=== PATIENT | male | born 1985 | race African-American/Black ===

== ENCOUNTER 2018-04-27 13:20 | Emergency (ER) | payer SELFPAY ==
--- NOTE | 2018-04-27 13:29 | PDOC ---
History of Present Illness <Samantha Perrin - Last Filed: 04/27/18 18:41> - General History Source: Patient Exam Limitations: No Limitations - History of Present Illness Initial Comments: 04/27/18 13:53 32-year-old male with no past medical history BIBA to emergency department c/o right low back pain for two hours. He states that the pain is sharp, aggravated by movement and sitting up straight, alleviated by laying down flat, non- radiating, constant, currently 04/23. He denies dysuria, abdominal pain, nausea , vomiting, diarrhea, headache, body aches, weakness, numbness, tingling, testicular pain, penile pain, penile discharge, bowel or bladder incontinence. 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 Pt states he took two aleve an hour prior to arrival to ED. Allergies - NKDA <Christa Garcia - Last Filed: 04/27/18 22:39> - General Chief Complaint: Pain, Acute Stated Complaint: BACK PAIN Time Seen by Provider: 04/27/18 13:28 Past History <Samantha Perrin - Last Filed: 04/27/18 18:41> <Christa Garcia - Last Filed: 04/27/18 22:39> - Past Medical History Allergies/Adverse Reactions: Allergies Allergy/AdvReac Type Severity Reaction Status Date / Time No Known Allergies Allergy Verified 04/27/18 13:33 Home Medications: Ambulatory Orders Ibuprofen [Motrin -] 800 mg PO TID #30 tablet 04/27/18 Oxycodone HCl/Acetaminophen [Percocet 5-325 mg Tablet] 1 tab PO Q4H PRN #6 tablet MDD 4 04/27/18 Review of Systems - Review of Systems Able to Perform ROS?: Yes Comments:: 04/27/18 13:54 General: denies fever, chills, night sweats, generalized weakness. HEENT: denies sore throat, rhinorrhea, ear pain. Heart: denies chest pain, palpitations, syncope, lower extremity swelling, diaphoresis. Respiratory: denies shortness of breath, cough, sputum production, hemoptysis. Abdomen: denies abdominal pain, nausea, vomiting, diarrhea, constipation, blood in stool, bowel incontinence. : denies dysuria, increased urinary frequency, hematuria, urinary incontinence , flank pain, testicular pain, penile pain, penile discharge. Back: admits to back pain. Musculoskeletal: denies joint pain, muscle pain, joint swelling. Neurological: denies headache, dizziness, numbness, tingling, weakness. Skin: denies rash, laceration, abrasion. <Christa Garcia - Last Filed: 04/27/18 22:39> *Physical Exam - Vital Signs Last Vital Signs Temp Pulse Resp BP Pulse Ox 98.6 F 64 20 130/72 100 04/27/18 13:20 04/27/18 17:04 04/27/18 17:04 04/27/18 17:04 04/27/18 17:04 <Samantha Perrin - Last Filed: 04/27/18 18:41> - Physical Exam Comments: 04/27/18 13:54 Constitutional: Well-nourished, Well-developed, appearing stated age. laying still in bed, not writhing around. HEENT: head is normocephalic, atraumatic. EOMI. PERRLA. Neck: supple. Full ROM. Heart: regular rhythm. no murmurs, rubs or gallops. Lungs: clear to auscultation bilaterally. no crackles, rhonchi or wheezing. no stridor. Abdomen: soft, nontender. normal bowel sounds. no rebound, guarding, masses. Back: tenderness to right low back. straight leg testing positive bilaterally, R >L. Extremities: Peripheral pulses intact and equal. No lower extremity edema. Neurological: Neurological: Alert. Oriented x3. CN2-12 intact. 5/5 strength upper extremities. decreased right lower extremity and left lower extremity strength secondary to pain. 5/5 plantar flexion to bilateral lower extremities. Full sensation all extremities and bilateral face. Psych: awake, alert, oriented x3. Follows commands. Answers questions appropriately. <Christa Garcia - Last Filed: 04/27/18 22:39> ED Treatment Course - ADDITIONAL ORDERS Additional order review: Laboratory Results 04/27/18 13:45 Urine Color Ltyellow Urine Appearance Clear Urine pH 7.0 Ur Specific [place] 1.023 Urine Protein Negative Urine Glucose (UA) Negative Urine Ketones Negative Urine Blood Negative Urine Nitrite Negative Urine Bilirubin Negative Urine Urobilinogen Negative Ur Leukocyte Esterase Negative - Medications Given in the ED: ED Medications Discontinued Medications Generic Name Dose Route Start Last Admin Trade Name Garry PRN Reason Stop Dose Admin Cyclobenzaprine HCl 10 mg 04/27/18 13:40 04/27/18 13:45 Flexeril - PO 04/27/18 13:41 10 mg ONCE ONE Administration Diazepam 5 mg 04/27/18 15:37 04/27/18 15:43 Valium - PO 04/27/18 15:38 5 mg ONCE ONE Administration Ketorolac Tromethamine 60 mg 04/27/18 16:39 04/27/18 16:50 Toradol Injection - IM 04/27/18 16:40 60 mg ONCE ONE Administration Lidocaine 1 patch 04/27/18 14:01 04/27/18 14:26 Lidoderm Patch - TP 04/27/18 14:02 1 patch ONCE ONE Administration Lidocaine 1 patch 04/27/18 14:56 04/27/18 14:57 Lidoderm Patch - TP 04/27/18 14:57 1 patch ONCE ONE Administration Oxycodone/Acetaminophen 2 combo 04/27/18 17:53 04/27/18 18:04 Percocet 5/325 - PO 04/27/18 17:54 2 combo ONCE ONE Administration <Samantha Perrin - Last Filed: 04/27/18 18:41> Medical Decision Making - Medical Decision Making 04/27/18 14:03 32 year old male with no PMH, recently doing construction work, c/o right low back pain, (+) straight leg testing bilaterally (R>L), pain reproducible by palpation of right low back and with movement. Laying still in bed, not writing around. Initial Vital Signs Temp Pulse Resp BP Pulse Ox 98.6 F 60 20 135/76 100 04/27/18 13:20 04/27/18 13:20 04/27/18 13:20 04/27/18 13:20 04/27/18 13:20 Afebrile. No tachycardia. No tachypnea. Mild hypertension - Possibly secondary to pain - Will reassess No hypoxia on room air. Concern for musculoskeletal pain - Flexeril ordered - Pt recently took 1000 mg of Naproxen, cannot give Toradol at this time - Lidoderm patch ordered Low concern for UTI, nephrolithiasis - no fever, no dysuria, pt lying still in bed, no radiation of pain to groin - Pending UA/UC 04/27/18 14:33 Urine Test Results Urine Color Ltyellow 04/27/18 13:45 Urine Appearance Clear 04/27/18 13:45 Urine pH 7.0 (5.0-8.0) 04/27/18 13:45 Ur Specific [place] 1.023 (1.010-1.035) 04/27/18 13:45 Urine Protein Negative (NEGATIVE) 04/27/18 13:45 Urine Glucose (UA) Negative (NEGATIVE) 04/27/18 13:45 Urine Ketones Negative (NEGATIVE) 04/27/18 13:45 Urine Blood Negative (NEGATIVE) 04/27/18 13:45 Urine Nitrite Negative (NEGATIVE) 04/27/18 13:45 Urine Bilirubin Negative (<2.0 mg/dL) 04/27/18 13:45 Ur Leukocyte Esterase Negative (NEGATIVE) 04/27/18 13:45 No blood in urine - Kidney stone unlikely No evidence of UTI 04/27/18 15:38 Pt reassessed, reports improvement of pain to 8/10. reports he is able to move around more. - Valium ordered 04/27/18 16:39 Pt reassessed, states pain is still 8/10. He states he is able to sit up further , but not completely straight up. - IM toradol ordered 04/27/18 17:14 Pt reassessed, states pain is now 6/10, and he is sitting up slightly higher. 04/27/18 17:54 Pt reassessed, still in pain, unable to ambulate unassisted. - 2 percocet ordered. 04/27/18 18:30 Pt reports pain has improved, ambulating well, was able to walk around the Emergency Department. Antalgic gait. Pt will be discharged. Vital Signs Temperature 98.6 F 04/27/18 13:20 Pulse Rate 67 04/27/18 18:44 Respiratory Rate 20 04/27/18 18:44 Blood Pressure 123/70 04/27/18 18:44 O2 Sat by Pulse Oximetry (%) 100 04/27/18 18:44 HTN resolved with pain control. <Christa Garcia - Last Filed: 04/27/18 22:39> *DC/Admit/Observation/Transfer - Discharge Dispostion Decision to Admit order: No <Samantha Perrin - Last Filed: 04/27/18 18:41> - Discharge Dispostion Decision to Admit order: No <Christa Garcia - Last Filed: 04/27/18 22:39> Diagnosis at time of Disposition: Back pain Qualifiers: Back pain location: low back pain Chronicity: acute Back pain laterality: bilateral Sciatica presence: without sciatica Qualified Code(s): M54.5 - Low back pain - Discharge Dispostion Disposition: HOME Condition at time of disposition: Improved - Prescriptions Prescriptions: Ibuprofen [Motrin -] 800 mg PO TID #30 tablet Oxycodone HCl/Acetaminophen [Percocet 5-325 mg Tablet] 1 tab PO Q4H PRN #6 tablet MDD 4 PRN Reason: Severe Pain - Referrals Referrals: ON STAFF,NOT [Primary Care Provider] - - Patient Instructions Printed Discharge Instructions: DI for Low Back Pain, DI for Muscle Strain Additional Instructions: You were seen today for back pain. Your urine analysis was normal, you likely do not have a urinary tract infection or a kidney stone. I have written a prescription for Ibuprofen (an anti-inflammatory), and sent it to your pharmacy, take as advised on label. Take on a full stomach. I have written a prescription for Percocet, and sent it to your pharmacy, take as advised on label. Do not take both ibuprofen and naproxen at the same time. Stay hydrated, drink water. Rest the affected area, no upper body exercise for 1-2 weeks, or until the pain has subsided. No heavy lifting for 1-2 weeks, or until the pain has subsided. Alternate heat and ice to the area, 20 minutes on and 20 minutes off. Follow up with your primary care physician within 5 days, and bring the paperwork given to you today with you. Call their office today, tell them you were seen in the Emergency Department, and make an appointment for this week. Please return to the Emergency Department if you develop fever, nausea, vomiting , burning with urination, increasing pain, weakness or numbness, urinary or bowel incontinence. Please return to the Emergency Department for any new, worsening or concerning symptoms. - Post Discharge Activity Forms/Work/School Notes: Back to Work
--- NOTE | 2018-04-27 13:30 | PDOC ---
Attending Attestation - Resident Resident Name: Christa Garica - HPI HPI: 04/28/18 09:11 Pt presents to the ED complaining of the acute onset of lower back pain that began when getting up from a chair. Denies trauma. Denies fever. Denies prior history of chronic back pain. Denies leg weakness or bowel or bladder control. 04/28/18 09:29 - Physicial Exam PE: 04/28/18 09:29 Agree with resident exam. PAteint is alert and oriented x 3 and in no acute distress. No point tenderness over spine. Pain limited ROM of back. INtact lower extremity pain. - Medical Decision Making 04/28/18 09:32 Pt presents to the ED complaining of atraumatic back pain. No concerns for cord compression, malignancy, fracture or abscess. Improved in the ED after flexiril, toradol, valium and percoset. Patient is now ambulatory. Will discharge home.
[2018-04-27 13:32] VITALS: TEMP 98.6; BMI 28.2
[2018-04-27] MEDS ORDERED: CYCLOBENZAPRINE HCL 10 MG TABLET (FP) PO ONE (13:40)
[2018-04-27] MEDS ORDERED: CYCLOBENZAPRINE HCL 10 MG TABLET (FP) ONE (13:47)
[2018-04-27 13:59] LABS: URINE APPEARANCE CLEAR; URINE BILIRUBIN NEGATIVE (<2.0 mg/dL); URINE COLOR LTYELLOW; URINE GLUCOSE (UA) NEGATIVE (NEGATIVE); URINE KETONE NEGATIVE (NEGATIVE); URINE LEUK ESTERASE NEGATIVE (NEGATIVE); URINE NITRITE NEGATIVE (NEGATIVE); URINE PROTEIN NEGATIVE (NEGATIVE); URINE UROBILINOGEN NEGATIVE mg/dL (0.2-1.0)
[2018-04-27] MEDS ORDERED: LIDOCAINE 5% TOPICAL PATCH TP ONE ×2 (14:01→14:56)
[2018-04-27] MEDS ORDERED: LIDOCAINE 5% TOPICAL PATCH ONE ×2 (14:21→14:58)
[2018-04-27] MEDS ORDERED: diazePAM 5 MG TABLET PO ONE (15:37)
[2018-04-27] MEDS ORDERED: diazePAM 5 MG TABLET ONE (15:40)
[2018-04-27] MEDS ORDERED: KETOROLAC TROMETHAMINE 60 MG/2 ML VIAL IM ONE (16:39)
[2018-04-27] MEDS ORDERED: KETOROLAC TROMETHAMINE 60 MG/2 ML VIAL ONE (16:49)
[2018-04-27 18:45] VITALS: BP 123/70; PULSE 67
[2018-04-27] MEDS ORDERED: LIDOCAINE PATCH REMOVAL MC SCH ×2 (22:00)
== END 2018-04-27 20:30 | disposition home or self-care (01) ==
LOC: JER 13:20
PROC: 3E0233Z Introduction of Anti-inflammatory into Muscle, Percutaneous Approach (ICD-10-PCS; principal; 2018-04-27)
DX: M54.5 Low back pain (principal)
CPT/HCPCS: 81003; 87086; 99282-25